=== PATIENT | male | born 2005 | race Caucasian/White ===

== ENCOUNTER 2024-12-24 01:16 | Emergency (ER) | payer MEDICAID, SELFPAY ==
--- OUTSIDE RECORDS SUMMARY | 2018-04-20 08:20 | XMS_ITS | Continuity of Care Document ---
Author Organization [facility] Address [address] [place] [address] Phone Care Team Providers Care Gas Engine Operator Name Role Phone Nitesh Tabares Unavailable Unavailable Advance Directives Directive Yes / No Effective Date File Name No Information Encounters Encounter Description Practice Location Reason(s) For Visit Diagnoses Date Provider Providers Copied on Encounter [facility], [address] [place] [address], [facility], tel:[phone] *[facility] No Information Rayshawn Dowling. [address] [place] [address], [facility], [place]. tel:[phone] Family History Family Member Type Diagnosis Age At Onset No Information Payers Payer name Insurance type Covered libertarian ID Authoriza tion(s) No Information Social History [...]
[2024-12-24 01:28] VITALS: BP 119/70; PULSE 73; RESP 18; TEMP 36.9; O2SAT 95; BMI 21.8
--- OUTSIDE RECORDS SUMMARY | 2024-12-24 01:31 | XMS_ITS | Clinical Summary ---
Author Organization [facility] Address [address] [facility] Attn: Epic Prelude ADT ANT [place]DE[place] [address] Care Team Providers Care Inspector Rubber Stamp Die Name Role Phone Unavailable Primary Care Provider Unavailabl e Allergies Active Allergy Reactions Criticality Noted Date Comments Unclassified Drug Other (See Comments) 03/19/20 18 Honey bees and wasps Medications EPINEPHrine (EPIPEN JR) 0.15 mg/0.3 mL Auto-Injector Inject 0.15 mg by intramuscular injection 1 time daily as needed for Anaphylaxis. 8 Active lidocaine (XYLOCAINE) 5 % Ointment Apply to huma 30 minutes prior to office appointment. 35.44 Gram 12/01/2023 12:18 PM CDT 4 Active traZODone (DESYREL) 100 mg tablet Take 1 Tablet (100 mg) by mouth daily at bedtime. 30 Tablet 12/01/2023 12:18 PM CDT 4 Active ibuprofen (MOTRIN) 600 mg tablet Take 1 Tablet (600 mg) by mouth every 6 hours as needed for Mild Pain. 240 Tablet 12/01/2023 12:18 PM CDT 4 Active HYDROmorphone (DILAUDID) 2 mg tabletIndicati ons:Postoperat faiza pain Take 1 Tablet (2 mg) by mouth every 4 hours as needed for Pain. Max Daily Amount: 12 mg 40 Tablet 4 Active cyclobenzaprin e (FLEXERIL) 10 mg tablet Take 1 Tablet (10 mg) by mouth 3 times daily as needed for Spasm. 60 Tablet 4 Active naloxone (NARCAN) 4 mg/spray [place], Non-Aerosol 4 mg by See Admin Instructions route one time as needed for Other (See Comment) (overdose). Administer 1 spray in one nostril one time. May repeat in alternating nostril every 2-3 minutes until responsive or until EMS arrives Active Active Problems Problem Noted Date Diagnosed Date Postoperative abdominal pain 12/04/2023 History of colectomy 11/28/2023 Ileostomy status 11/28/2023 Leukocytosis 11/28/2023 Microcytic anemia 11/28/2023 Constipation 11/21/2023 IBS (irritable bowel syndrome) 07/18/2023 Colonic dysmotility 10/26/2019 Chronic constipation with overflow incontinence 12/01/2018 Overview (11/21/2023): Last Assessment & Plan: Assessment: 13 year old with behavioral concerns, who was admitted to an inpatient behavioral facility presents for anorectal manometry for evaluation of chronic constipation with overflow incontinence. Plan: - Admit to Dr.Meyer Flores OCASIO NPO - mIVF D5 NS - Strict bed rest - iv Tylenol q6 PRN - Home meds ordered to bedside - but hold since NPO - For anxiety, okay to do intranasal versed - VS q8h - Is and Os Last Assessment & Plan: Assessment: 13 year old with behavioral concerns, who was admitted to an inpatient behavioral facility presents for anorectal manometry for evaluation of chronic constipation with overflow incontinence. Plan: - Admit to Dr.Meyer NINFA - Bandar NPO - mIVF D5 NS - Strict bed rest - iv Tylenol q6 PRN - Home meds ordered to bedside - but hold since NPO - For anxiety, okay to do intranasal versed - VS q8h - Is and Os Posttraumatic stress disorder Bipolar I disorder, moderate , current or most recent episode depressed, with anxious distress Conduct disorder, childhood onset type Oppositional defiant behavior ADHD (attention deficit hype ractivity disorder), combined type Enuresis, nonorganic Conduct disorder, childhood-onset type Reactive attachment disorder Encopresis, nonorganic Encounters Date Type Department Care Team Description 12/14/2024 External Device Data ST[facility] ABSTRACTION Provider, Abstract 12/14/2024 External Device Data STL ABSTRACTION Provider, Abstract 11/04/2024 External Device Data STL ABSTRACTION Provider, Abstract 11/03/2024 External Device Data STL ABSTRACTION Provider, Abstract 10/26/2024 External Device Data STL ABSTRACTION Provider, Abstract 10/26/2024 External Device Data STL ABSTRACTION Provider, Abstract 10/19/2024 External Device Data STL ABSTRACTION Provider, Abstract from Last 3 Months Immunizations Immunization Administration Dates Next Due (ACTHIB/HIBERIX)(2 MOS-5 YRS /6 WKS-4 YRS) HAEMOPHILUS INFLUENZAE TYPE B VACCINE (HIB), PRP-T CONJUGATE, 4 DOSE, 0.5 ML IM 04/18/2005,02/15/2005 (ADACEL/BOOSTRIX)(10 YR UP) TDAP VACCINE, 0.5ML, IM 08/11/2018 (HAVRIX/VAQTA)(12 MO-18 YRS) HEPATITIS A VACCINE 0.5 ML PED/ADOL 2 DOSE, IM 01/24/2011,02/02/2010 (INFANRIX)(6 WKS-6 YRS) DIPT HERIA, TETANUS TOXOIDS, AND ACCELLULAR PERTUSSIS VACCINE (DTAP), 0.5 ML IM 09/19/2008,10/28/2005 (IPOL)(6 WKS AND UP) POLIOVI IRVIN VACCINE, INACTIVATED (IPV), 3 DOSE, SUBCUT OR IM 09/19/2008 (M-M-R II/PRIORIX)(12 MO UP) MEASLES, MUMPS AND RUBELLA VIRUS VACCINE, 0.5 ML IM/SUBCUT 09/19/2008,09/23/2005 (PEDIARIX)(6 WKS-6 YRS) DIPT HERIA, TETANUS TOXOIDS, ACELLULAR PERTUSSIS, HEPATITIS B, AND INACTIVATED POLIOVIRUS VACCINE (JHBH-BTUC-IOJ), 0.5ML, IM 04/18/2005,02/15/2005,2004 (VARIVAX)(12 MOS UP)VARICELL A VIRUS VACCINE (PF) 0.5 ML, SUB CUT 02/02/2010,09/23/2005 HIB, Unspecified Formulation 2004 Hepatitis B Vaccine 2004 INFLUENZA VACCINE QUADRIVALE NT 3 YR UP PF IM 06/22/2015 Influenza Vaccine Quad Split 6-35 Mo Pf Im 06/05 Pneumococcal 7-valent conjugate vaccine IM 04/18,02/15/2005,2004 Family History Medical History Relation Name Comments No Known Problems Father No Known Problems Mother Relation Name Status Comments Father Mother Social History Tobacco Use Types Packs/Day Years Used Date Smoking Tobacco: Some Days Cigarettes Smokeless Tobacco: Never Tobacco Cessation:Ready to Q uit: Not Asked; Counseling Given: Not Answered Alcohol Use Standard Drinks/Week Comments Yes 2 (1 standard drink = 0.6 oz pur e alcohol) OASIS D0700: Social Isolation Answer Da te Recorded Frequency of experiencing loneliness or isolatio n Never 12/03/2023 Transportation Needs Answer Date Record ed Lack of Transportation (Medical) No 12/03/2023 Lack of Transportation (Non-Medical) No 12/03/2023 Patient Unable or Declines to Respond No 12/03/2023 OASIS B1300: Health Literacy Answer Wang e Recorded Frequency of needing help to read materials from doctor or pharmacy Never 12/03/2023 Adolescent Education Answer Date Record ed Getting School Help Needed Not on file 12/31 Feeling Safe Answer Date Recorded Are you in a relationship wi th someone who hurts you emotionally and/or physically? 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 Gender Identity Not on file Sexual Orientation Not on file Last Filed Vital Signs Vital Sign Reading Time Taken Comments Blood Pressure 99/60 12/26/2023 4:03 AM CDT Pulse 92 12/26/2023 4:03 AM CDT Temperature 36.3 C (97.4 F) 12/26/2023 4:03 AM CDT Respiratory Rate 16 12/26/2023 4:03 AM CDT Oxygen Saturation 98% 12/26/2023 4:03 AM CDT Inhaled Oxygen Concentration - - Weight 68.5 kg (151 lb) 12/26/2023 12:26 AM CDT Height 188 cm (6' 2 ) 12/26/2023 12:26 AM CDT Body Mass Index 19.39 12/26/2023 12:26 AM CDT Plan of Treatment Upcoming Encounters Date Type Department Care Team (Late st Contact Info) Description 02/02/2025 3:15 PM CDT Office Visit [facility] Surgical Spec [place] [address] [place] [address] Kelly Vu MD [address] [facility] [address] [place] [address] Health Maintenance Due Date Last Done Comments CHLAMYDIA SCREENING (ANNUAL) 11-24 YEARS 2015 INFLUENZA VACCINE (#1) 2025 06/05/2017, 2015 DTAP/TDAP/TD VACCINES (7 - T d or Tdap) 08/11/2028 08/11/2018, 09/19/2008, 10/28/2005, Additional history exists HEPATITIS B VACCINES Completed 04/18/2005, 02/15/2005, 2004, Additional history exists Abdominal Aortic Aneurysm (A AA) Screening Completed 09/08/2018 HPV VACCINES Completed 10/22/2019, 10/29/2018 Medical Devices Implanted Type Area Bankruptcy Attorney Device Identifier Shelf Expiration Date Model / Serial / Lot Barrier Seprafilm 5x6in [id number] - [id number] Implanted:Qt y: 1 on 11/24/2023 by Kelly Zhong MD at [facility] Adhesion Barrier N/A: Abdomen [employer] 03/12/2025 [id number] / / [id number] Procedures Procedure Name Priority Date/Time Associated Diagnosis Comments US ABDOMEN COMPLETE Routine 09/08/2018 9 :36 AM CDT Slow transit constipation Encopresis Intermittent generalized abdominal pain from Last 3 Months or Most Recently Relevant to Health Maintenance Results * US ABDOMEN COMPLETE (09/08/2018 9:36 AM CDT) Anatomical Region Laterality Modality Abdomen Other Impressions 09/08/2018 3:38 PM CDT No acute findings. [id number] Narrative 09/08/2018 3:38 PM CDT Exam: US ABDOMEN COMPLETE Date/Time of Exam: 09/08/2018 9:36 AM Reason For Exam: See Diagnosis. Diagnosis: Slow transit constipation; Encopresis; Intermittent generalized abdominal pain. Findings: Visualized portions of the pancreas unremarkable. The proximal IVC/aorta were unable to be visualized secondary to overlying bowel gas. Liver measures 11.5 cm in length in midaxillary line and is difficult to visualize secondary to overlying bowel gas but the visualized portions are grossly unremarkable. Portal vein shows antegrade flow. Common bile duct measures 2.4 mm in diameter. Gallbladder is unremarkable. The right kidney is unremarkable. The left kidney is unremarkable. The spleen is unremarkable. Procedure Note Chiki Trevizo MD - 11/15/2020 Exam: US ABDOMEN COMPLETE Date/Time of Exam: 09/08/2018 9:36 AM Reason For Exam: See Diagnosis. Diagnosis: Slow transit constipation; Encopresis; Intermittent generalized abdominal pain. Findings: Visualized portions of the pancreas unremarkable. The proximal IVC/aorta were unable to be visualized secondary to overlying bowel gas. Liver measures 11.5 cm in length in midaxillary line and is difficult to visualize secondary to overlying bowel gas but the visualized portions are grossly unremarkable. Portal vein shows antegrade flow. Common bile duct measures 2.4 mm in diameter. Gallbladder is unremarkable. The right kidney is unremarkable. The left kidney is unremarkable. The spleen is unremarkable. IMPRESSION No acute findings. [id number] Hardy Pierce MD ORDERABLES Final Result from Last 3 Months or Most Recently Relevant to Health Maintenance Insurance SHOW ME HEALTHY KIDS [place] RX INFOCROSSING Medicaid RX [place] PLANS (INTERNAL) [facility] Plans SHOW [facility] HEALTHY KIDS [facility] [place] [address] Advance Directives For more information, please contact: [phone] * Full Code (Latest Code Status on File) Date Activated Date Inactivated Comments 12/08/2023 12:36 AM 12/08/2023 5:45 PM * Full Code Date Activated Date Inactivated Comments 12/04/2023 9:18 AM 12/05/2023 6:37 PM * Full Code Date Activated Date Inactivated Comments 11/24/2023 2:12 PM 12/01/2023 2:02 PM * Full Code Date Activated Date Inactivated Comments 11/21/2023 2:17 PM 11/24/2023 2:12 PM
--- NOTE | 2024-12-24 03:15 | ED_ITS ---
HPI - General Adult General: Chief complaint: General Medical Stated complaint: Colostomy Bag needed Time Seen by Provider: 12/24/24 03:15 History of Present Illness: Patient presents to the Emergency Department at approximately 3:00 AM seeking ostomy supplies. Patient reports their ostomy bag started leaking, which prompted them to call an ambulance. Patient states they only had 30 minutes of sleep before the incident occurred. Patient reports significant fatigue due to lack of sleep. Patient mentions they normally have a direct provider for ostomy supplies but currently does not know who their primary care physician is. Patient is currently staying at a detention and mentions a potential source for ostomy supplies through an acquaintance at the detention who no longer needs their supplies. Related Data Allergies Allergy/AdvReac Type Severity Reaction Status Date / Time No Known Allergies Allergy Verified 12/24/24 01:35 Review of Systems General: Reports: 10 or more systems reviewed and unremarkable except in HPI and below Physical Exam Const: COMMON NORMALS: no acute distress, patient oriented x3, alert and well nourished HENMT: COMMON NORMALS: normocephalic HEAD & SCALP: normocephalic Resp: COMMON NORMALS: normal respiratory effort, No retractions, No use of accessory muscles, clear to auscultation bilaterally and percussion normal AUSCULTATION: clear to auscultation bilaterally PERCUSSION: percussion normal GI: COMMON NORMALS: Normal to inspection, nondistended, normoactive bowel sounds present, Soft to palpation, non-tender, No hepatosplenomegaly present, no masses and no bruits PALPATION: Yes Soft to palpation and Yes No hepatosplenomegaly present Extremity: COMMON NORMALS: normal to inspection, full ROM, capillary refill normal, no joint enlargement, no clubbing, cyanosis or edema, no calf tenderness and no pedal edema Neuro: COMMON NORMALS: patient oriented x3 SENSORIUM/ORIENTATION: Yes alert Skin: COMMON NORMALS: no rashes or lesions noted, turgor normal and no jaundice GENERAL SKIN EXAM: no rashes or lesions noted and turgor normal Course Vital Signs: Vital signs: Vital Signs Temperature 98.4 F 12/24/24 01:28 Pulse Rate 73 12/24/24 01:28 Respiratory Rate 18 12/24/24 01:28 Blood Pressure 119/70 12/24/24 01:28 Pulse Oximetry 95 12/24/24 01:28 Oxygen Delivery Me thod Room Air 12/24/24 01:28 MDM - General Adult Medical Decision Making 1. Ostomy Care/Management: - Provide immediate replacement of ostomy supplies to address current leakage. - Assess current ostomy site for any signs of irritation, infection, or complications. - Provide patient education on proper ostomy care and maintenance. 2. Care Coordination: - Social work consult to assist with establishing consistent access to ostomy supplies. - Assist patient in identifying their primary care provider or establishing care with a new provider. - Provide information on community resources for obtaining regular ostomy supplies. 3. Housing/Social Support: - Note patient is currently residing in a detention. - Consider case management referral to address housing instability which may be complicating medical care. 4. Follow-up: - Recommend follow-up with primary care within 1-2 weeks. - Provide patient with contact information for ostomy nurse specialist if available. No radiology studies performed this visit Discharge Plan Discharge Patient Disposition: Home Clinical Impression: Complication of ostomy Condition: Stable Discharge Orders: Discharge ED (Routine); Ordered 12/24/24 Ordered By: Dino Chappell Discharge Diet: Advance as tolerated Discharge Activity: Resume usual activity Patient Instructions: Opioid Safety, Pain Management, Patient Portal & Catherine Instructions Activity Restrictions/Additional Instructions: 1. Needs PCP and ostomy supplier. Print Language: Russian Coding Level of Care Code ED Senior Insight Manager International for Chago Kennedy
== END 2024-12-24 03:31 | disposition home or self-care (01) ==
PROVIDERS: Emergency Provider Family Medicine
DX: K94.00 Colostomy complication, unspecified (principal)
CPT/HCPCS: 99282

== ENCOUNTER 2025-01-10 14:38 | Emergency (ER) | payer MEDICAID, SELFPAY ==
--- OUTSIDE RECORDS SUMMARY | 2018-04-20 08:20 | XMS_ITS | Continuity of Care Document ---
Author Organization [facility] Address [address] [place] [address] Phone Care Team Providers Care Color Specialist Name Role Phone Nitesh Tabares Unavailable Unavailable Advance Directives Directive Yes / No Effective Date File Name No Information Encounters Encounter Description Practice Location Reason(s) For Visit Diagnoses Date Provider Providers Copied on Encounter [facility], [address] [place] [address], [facility], tel:[phone] *[facility] No Information Rayshawn Dowling. [address] [place] [address], [facility], [place]. tel:[phone] Family History Family Member Type Diagnosis Age At Onset No Information Payers Payer name Insurance type Covered green party ID Authoriza tion(s) No Information Social History Type Description Quantity Date Captured Comments Sex Male Smoking Status No Information Gender Identity Male Chief Complaint And Reason For Visit No Information Reason For Referral Reason For Referral No Information History Of Present Illness Encounter Date Complaint History Of Prese nt Illness No Information Functional Status Date Functional Assessmen t No Information Instructions Date Instruction Additional Infor mation No Information Assessments Type Assessment Date No Information Patient Care Teams Name Effective Dates (start - stop) Status Members No Information
--- OUTSIDE RECORDS SUMMARY | 2025-01-10 14:44 | XMS_ITS | Clinical Summary ---
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 [facility] [address] [place] [address] Health Maintenance Due Date Last [...] 10/22/2019, 10/29/2018 Medical Devices Implanted Type Area Sound System Installer Device Identifier Shelf Expiration Date Model / Serial / Lot Barrier Seprafilm 5x6in [id number] - [id number] Implanted:Qt y: 1 on 11/24/2023 by Kelly Zhong MD at [facility] Adhesion Barrier N/A: Abdomen [employer] 03/12/2025 [id number] / / [id number] Procedures Procedure Name Priority Date/Time Associated Diagnosis Comments US ABDOMEN COMPLETE Routine 09/08/2018 9 :36 AM CDT Slow transit constipation Encopresis Intermittent generalized abdominal pain from Last 3 Months or Most Recently Relevant to Health Maintenance Results * US ABDOMEN COMPLETE (09/08/2018 9:36 AM CDT) Anatomical Region Laterality Modality Abdomen Other Impressions 09/08/2018 3:38 PM CDT No acute findings. [id number] Narrative 09/08/2018 3:38 PM CDT Exam: US [...] spleen is unremarkable. IMPRESSION No acute findings. [id number] us Hardy Pierce MD ORDERABLES Final Result from Last 3 Months or Most Recently Relevant to Health Maintenance Insurance SHOW ME HEALTHY KIDS [facility] RX INFOCROSSING Medicaid RX [employer] PLANS (INTERNAL) [facility] [employer] [facility] SHOW ME HEALTHY KIDS Advance Directives For more information, please contact: [phone] * Full Code (Latest Code Status on [...]
[2025-01-10 14:52] VITALS: PULSE 105; RESP 22; O2SAT 98
--- NOTE | 2025-01-10 15:12 | ED_ITS ---
HPI - General Adult General: Chief complaint: Skin/Abscess/Foreign Body Stated complaint: colostomy bag coming off Time Seen by Provider: 01/10/25 15:06 Source: patient Mode of arrival: ambulatory Limitations: no limitations History of Present Illness: Patient is a 19-year-old male presents to ED today requesting a colostomy bag and supplies. Upon initial examination, patient is anxious to get out of here . States he has to leave to go get his bicycle that he left across town. Looking at previous documentation, he was here a few weeks ago requesting colostomy bag and supplies. He has not found any resources to help set him up with this. He thinks maybe he was contacted by [facility] case management but he is not sure. He does have plans to follow-up with his surgeon shortly. He is currently residing in a correction. He states ostomy seems to be draining appropriately. He is not having any abdominal pain. No vomiting. Reports some very minor skin irritation around his ostomy. Onset (ago): day(s) Location: abdomen Severity: mild Relieving factors: none Exacerbating factors: none Associated symptoms: Reports no associated symptoms; Deny chest pain, dyspnea, malaise or vomiting Treatments prior to arrival: none Related Data Allergies Allergy/AdvReac Type Severity Reaction Status Date / Time No Known Allergies Allergy Verified 12/24/24 01:35 Review of Systems Const: Denies: fever(s), chills, body aches, fatigue or malaise Card: Denies: chest pain Resp: Denies: dyspnea GI: Reports: other (normal ostomy output); Denies: abdominal pain or vomiting Physical Exam Const: COMMON NORMALS: no acute distress, average body habitus, no limitations, healthy appearing, alert and well nourished GENERAL APPEARANCE: cooperative OTHER: impatient; wanting to get supplies and get out of here Resp: COMMON NORMALS: normal respiratory effort and clear to auscultation bilaterally AUSCULTATION: clear to auscultation bilaterally Cardio: COMMON NORMALS: regular rate and regular rhythm RATE: regular rate RHYTHM: regular rhythm GI: COMMON NORMALS: Normal to inspection, nondistended, normoactive bowel sounds present, Soft to palpation, No hepatosplenomegaly present and no masses INSPECTION: Yes GI ostomy present (very minor skin irritation; output appears normal ) PALPATION: Yes Soft to palpation and Yes No hepatosplenomegaly present Neuro: SENSORIUM/ORIENTATION: Yes alert Course Vital Signs: Vital signs: Vital Signs Pulse Rate 105 H 01/10/25 14:52 Respiratory Rate 22 H 01/10/25 14:52 Pulse Oximetry 98 01/10/25 14:52 Oxygen Delivery Me thod Room Air 01/10/25 14:52 MDM - General Adult Medical Decision Making Will contact GI lab for colostomy supplies for patient. Recommend current plan to follow up with his surgeon. Will also have case management work on this as well. Medical Records I reviewed the patient's medical records. No radiology studies performed this visit Discharge Plan Discharge Patient Disposition: Home Clinical Impression: Colostomy care Condition: Stable Discharge Orders: Discharge ED (Routine); Ordered 01/10/25 Ordered By: Suzette Marie Patient Instructions: Colostomy Care (ED), Patient Portal & Catherine Instructions Activity Restrictions/Additional Instructions: Case management should be reaching out to you to help set you up with further information regarding colostomy supplies. You also have indicated you are going to follow-up with your surgeon for this as well. Print Language: Burmese Coding Level of Care Code ED Surveyor Instrument Assistant for Chago Kennedy
[2025-01-10 15:37] VITALS: PULSE 105; O2SAT 98
--- NOTE | 2025-01-11 14:55 | PC.SOCIAL ---
Primary Clinician/Colostomy Supplies CM received consult for colostomy supplies. No documentation indicating stoma size or needs for patient. CM attempted to call patient to discuss and no answer and unable to leave a message. IF patient is to return to ER for supplies. Please obtain a good contact phone number. Size of Stoma and type of supplies patient has been using. It would also be helpful to know when ostomy was placed and @ what facility. As CM could potentially locate where patient was obtaining supplies.
== END 2025-01-10 15:38 | disposition home or self-care (01) ==
PROVIDERS: Emergency Provider Physician Assistant
DX: Z43.3 Encounter for attention to colostomy (principal)
CPT/HCPCS: 99282